=== PATIENT | female | born 1955 | race Caucasian/White ===

== ENCOUNTER 2017-12-27 16:25 | Inpatient (IN) | payer BC ==
[~2017-12-27] VITALS: Ht 170.2 cm; Wt 95.4 kg
[2017-12-27 16:37] VITALS: Ht 170.2 cm; Wt 95.4 kg
[2017-12-27] MEDS ORDERED: ATENOLOL50 MG PO (18:20)
[2017-12-27 18:36] LABS: BASOPHIL % 0.3 % (0-2); PLATELET COUNT 214 x10^3mcL (130-400); RED CELL DISTRIBUTION WIDTH 12.3 % (11.5-14.5)
[2017-12-27 18:50] LABS: CALCIUM 8.9 mg/dL (8.5-10.1); CARBON DIOXIDE 29.6 mmol/L (21-32); CHLORIDE SERUM 101 mmol/L (98-107); CREATININE SERUM 0.7 mg/dL (0.6-1.0); GFR1 > 60 mL/min; GLUCOSE SERUM 207 mg/dL (74-106); POTASSIUM SERUM 3.8 mmol/L (3.5-5.1); SODIUM SERUM 137 mmol/L (136-145)
[2017-12-27 18:54] LABS: ALBUMIN 3.7 g/dL (3.4-5.0); ALKALINE PHOSPHATASE 90 U/L (46-116); ALT/SGPT 64 U/L (14-59); AST/SGOT 42 U/L (15-37); BILIRUBIN TOTAL 0.3 mg/dL (0.20-1.00); LIPASE 190 IU/L (73-393); TOTAL PROTEIN, SERUM 7.5 g/dL (6.4-8.2)
[2017-12-27 20:17] VITALS: BP 165/81
[2017-12-27 21:43] VITALS: BP 168/74
[2017-12-27 21:50] LABS: CHOLESTEROL/HDL RATIO 3.9; MAGNESIUM 2.3 mg/dL (1.8-2.4); PHOSPHOROUS 3.2 mg/dL (2.5-4.9)
[2017-12-27 21:57] LABS: FREE T4 0.95 ng/dL (0.76-1.46); FREE THYROXINE INDEX 2.3 ug/dL (1.4-4.5); T3 TOTAL 1.15 ng/mL; T4(THYROXINE) 7.2 ug/dL (4.7-13.3)
[2017-12-28 01:52] LABS: BASOPHIL % 1.1 % (0-2); PLATELET COUNT 222 x10^3mcL (130-400)
[2017-12-28 01:57] LABS: RED CELL DISTRIBUTION WIDTH 11.2 % (11.5-14.5)
[2017-12-28 02:07] LABS: CALCIUM 8.8 mg/dL (8.5-10.1); CARBON DIOXIDE 27.8 mmol/L (21-32); CHLORIDE SERUM 104 mmol/L (98-107); CREATININE SERUM 0.6 mg/dL (0.6-1.0); GFR1 > 60 mL/min; GLUCOSE SERUM 140 mg/dL (74-106); POTASSIUM SERUM 4.4 mmol/L (3.5-5.1); SODIUM SERUM 138 mmol/L (136-145)
[2017-12-28 04:55] VITALS: BP 144/76
[2017-12-28 09:14] VITALS: BP 162/75
[2017-12-28 13:47] VITALS: BP 141/73
[2017-12-28 17:24] VITALS: BP 164/74
[2017-12-28] MEDS ORDERED: TEN50 PO (17:42)
[2017-12-28] MEDS ORDERED: ZES10 PO (17:42)
== END 2017-12-28 18:13 | disposition left against medical advice (07) | DRG 391 ==
LOC: ED 16:25 → DU 18:58
PROVIDERS: Emergency Medicine; Family Medicine Sports Medicine
DX: K21.9 Gastro-esophageal reflux disease without esophagitis (principal); I50.43 Acute on chronic combined systolic (congestive) and diastolic (congestive) heart failure; I16.0 Hypertensive urgency; I11.0 Hypertensive heart disease with heart failure; I08.3 Combined rheumatic disorders of mitral, aortic and tricuspid valves; E11.65 Type 2 diabetes mellitus with hyperglycemia; K76.0 Fatty (change of) liver, not elsewhere classified; E78.5 Hyperlipidemia, unspecified; Z68.33 Body mass index [BMI] 33.0-33.9, adult
CPT/HCPCS: 82962; 83880; 84439; J7030; Q0092